=== PATIENT | male | born 1985 | race African-American/Black ===

== ENCOUNTER 2020-01-09 15:55 | Emergency (ER) | payer SELFPAY ==
[~2020-01-09] VITALS: Ht 165.1 cm; Wt 84.4 kg
[2020-01-09 17:26] VITALS: BP 185/109
[2020-01-09] MEDS ORDERED: IV NORMAL SALINE 1,000ML 1,000 ML IV ONE ×2 (17:30)
[2020-01-09] MEDS ORDERED: IV RINGERS SOLUTION,LACTATED 1,000 ML IV ONE (17:30)
--- NOTE | 2020-01-09 17:33 | PHYS DOC ---
Past History Past Medical History: No Pertinent History (MAZIN CHOI DO) Past Surgical History: No Surgical History (MAZIN CHOI DO) Alcohol Use: None (MAZIN CHOI DO) General Adult EDM: Chief Complaint: MUSCLE SPASM/CRAMP HPI: HPI: Patient is a 34-year-old otherwise healthy male who presents in POV in severe distress secondary to muscle cramping. 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 He states he is worked very hard and does not think he is taken enough liquids and. He does not recall urinating throughout the day today. He states he was sweating quite a bit earlier in the day but has not been sweating is much in the last hour or so. He does complain of nausea and vomiting. He states the cramping in his muscles is excruciating at this time. [] (MAZIN CHOI DO) Review of Systems: Review of Systems: Constitutional: Denies fever or chills Eyes: Denies change in visual acuity HENT: Denies nasal congestion or sore throat Respiratory: Denies cough or shortness of breath Cardiovascular: Denies chest pain or edema GI: Denies abdominal pain, nausea, vomiting, bloody stools or diarrhea : Denies dysuria Musculoskeletal: Per HPI Integument: Denies rash Neurologic: Denies headache, focal weakness or sensory changes Endocrine: Denies polyuria or polydipsia Lymphatic: Denies swollen glands Psychiatric: Denies depression or anxiety (MAZIN CHOI DO) Heart Score: Risk Factors: Risk Factors: DM, Current or recent (<one month) smoker, HTN, HLP, family history of CAD, obesity. Risk Scores: Score 0 - 3: 2.5% MACE over next 6 weeks - Discharge Home Score 4 - 6: 20.3% MACE over next 6 weeks - Admit for Clinical Observation Score 7 - 10: 72.7% MACE over next 6 weeks - Early Invasive Strategies (MAZIN CHOI DO) Current Medications: Current Meds: Current Medications Medications (Trade) Dose Ordered Sig/Moises Start Time Stop Time Status Last Admin Dose Admin Lactated Ringer's 1,000 ml @ 1,000 mls/hr 1X ONCE 01/09/20 17:30 6/13/20 18:29 Sodium Chloride 1,000 ml @ 1,000 mls/hr 1X ONCE 01/09/20 17:30 01/09/20 18:29 (MAZIN CHOI DO) Allergies: Allergies: Allergies Coded Allergies Type Severity Reaction Last Updated Verified No Known Drug Allergies 01/09/20 No (MAZIN CHOI DO) Physical Exam: PE: Constitutional: Well developed, well nourished, moderate to severe distress, non-toxic appearance. [] HENT: Normocephalic, atraumatic, bilateral external ears normal, oropharynx moist, no oral exudates, nose normal. [] Eyes: PERRLA, EOMI, conjunctiva normal, no discharge. [] Neck: Normal range of motion, no tenderness, supple, no stridor. [] Cardiovascular:Heart rate regular rhythm, no murmur [] Lungs & Thorax: Bilateral breath sounds clear to auscultation [] Abdomen: Bowel sounds normal, soft, no tenderness, no masses, no pulsatile masses. [] Skin: Warm, dry, no erythema, no rash. [] Back: No tenderness, no CVA tenderness. [] Extremities: Diffuse muscle fasciculations [] Neurologic: Alert and oriented X 3, normal motor function, normal sensory function, no focal deficits noted. [] Psychologic: Anxious [] (MAZIN CHOI DO) EKG: EKG: EKG: Normal sinus rhythm rate of [address]-T changes [] (MAZIN CHOI DO) Radiology/Procedures: Radiology/Procedures: [] (MAZIN CHOI DO) Course & Med Decision Making: Course & Med Decision Making Pertinent Labs and Imaging studies reviewed. (See chart for details) [ED course: Evaluation reveals a 34-year-old male who appears to have exertional heat related illness and quite possibly rhabdomyolysis. His core temperature was 98 Fahrenheit on arrival here. He was given a total of 2 L of IV fluids and then 1/3 L was started as he had still not had any urine output. I suspect he may need to stay in the hospital for IV fluids and close observation] (MAZIN CHOI DO) Course & Med Decision Making See Dr. Velazquez's note forward details. Urine showed no cast or typical findings of rhabdo. Patient declines admission at this time. Patient continue to push fluids. Patient take Tylenol for discomfort. Patient encouraged to reduce tobacco and marijuana use. Patient follow-up primary care. Patient return if any concerns. Impression: 1. History of heat exhaustion 2. Dehydration, 3. Hx marijuana and tobacco use (RADHA ARTIS MD) Dragon Disclaimer: Dragon Disclaimer: This electronic medical record was generated, in whole or in part, using a voice recognition dictation system. (MAZIN CHOI DO) Departure Departure: Disposition: 01 HOME/RESIDENCE PRIOR TO ADM Condition: STABLE Justification of Admission: Justification of Admission: Justification of Admission Dx: N/A (RADHA ARTIS MD) Dragon Disclaimer This chart was dictated in whole or in part using Voice Recognition software in a busy, high-work load, and often noisy Emergency Department environment. It may contain unintended and wholly unrecognized errors or omissions. (RADHA ARTIS MD) Dragon Disclaimer This chart was dictated in whole or in part using Voice Recognition software in a busy, high-work load, and often noisy Emergency Department environment. It may contain unintended and wholly unrecognized errors or omissions. (MAZIN CHOI DO) MAZIN CHOI DO Jan 09, 2020 17:33 RADHA ARTIS MD Jan 10, 2020 05:28
[2020-01-09 18:19] LABS: AMPHETAMINE/METHAMPHETAMINE NEG (NEG); BARBITURATES NEG (NEG); BENZODIAZEPINES NEG (NEG); CANNABINOIDS POS (NEG); COCAINE NEG (NEG); METHADONE NEG (NEG); OPIATES NEG (NEG); PHENCYCLIDINE NEG (NEG)
[2020-01-09 18:35] LABS: BILIRUBIN,URINE NEG (NEG); CLARITY,URINE HAZY; COLOR,URINE YELLOW; GLUCOSE,URINE NEG (NEG)
[2020-01-09 18:36] LABS: BACTERIA,URINE FEW /HPF (0-FEW); HYALINE CASTS, URINE FEW /HPF; NITRITE,URINE NEG (NEG); RBC,URINE 0 /HPF (0-2); SQUAMOUS EPITHELIAL CELL,UR OCC /LPF; UROBILINOGEN,URINE 0.2 mg/dL (0.2 mg/dL); WBC,URINE 0 /HPF (0-4)
[2020-01-09] MEDS ORDERED: SODIUM BICARB ADULT 8.4% 50 MEQ/50 ML DISP.SYRIN. IV ONE (19:15)
[2020-01-09] MEDS ORDERED: SODIUM BICARBONATE 50 MEQ/50 ML VIAL. ONE (19:15)
== END 2020-01-09 19:39 | disposition home or self-care (01) ==
LOC: ER 15:55 → EDBD 15:55 → ER 19:39
DX: E86.0 Dehydration (principal); Z72.0 Tobacco use; F12.10 Cannabis abuse, uncomplicated
CPT/HCPCS: 36415; 80307; 81001; 96361; 96374; 99284; J7120; J7030